=== PATIENT | male | born 1975 | race African-American/Black ===

== ENCOUNTER 2017-03-07 10:00 | Emergency (ER) | payer SELFPAY ==
--- NOTE | 2017-03-07 10:45 | RAD ---
SINGLE VIEW OF THE CHEST: COMPARISON: 01/04/2006 HISTORY: Cough and body aches. FINDINGS: Single view of the chest shows a normal sized cardiomediastinal silhouette. There is no evidence of consolidation, mass, or pleural effusion. The bones are unremarkable. IMPRESSION: No evidence of acute cardiopulmonary disease. POS: [id number]
[2017-03-07 10:57] LABS: #Basophils 0.1 thou/uL (0.0-0.2); #Eosinphils 0.4 thou/uL (0.0-0.7); #Lymphocytes 2.3 thou/uL (1.20-3.40); #Monocytes 0.4 thou/uL (0.11-0.59); %Basophils 1.4 % (0.0-1.0); %Eosinophils 6.3 % (0.0-10.0); %Lymphocytes 37.8 % (21.0-51.0); %Monocytes 6.2 % (0.0-10.0); Hematocrit 38.6 % (42.0-52.0); Mean Platelet Volume 6.5 fL (7.4-10.4); White Blood Cell (WBC) Count 6.1 thou/uL (4.8-10.8)
[2017-03-07 11:23] LABS: ALT (SGPT) 64 U/L (8-55); AST (SGOT) 79 U/L (5-34); Alkaline Phosphatase 97 U/L (40-150); Anion Gap 11 mmol/L (10-20); BUN (Urea Nitrogen) 9 mg/dL (8.9-20.6); Bilirubin, Total 0.4 mg/dL (0.2-1.2); Calc. Creatinine Clearance 0 mL/min (70-130); Calcium 8.6 mg/dL (7.8-10.44); Carbon Dioxide 27 mmol/L (22-29); Chloride 106 mmol/L (98-107); Estimated GFR-MDRD 79; Globulin 3.2 g/dL (2.4-3.5)
== END 2017-03-07 11:30 | disposition home or self-care (01) ==
LOC: ERS 10:00
DX: J06.9 Acute upper respiratory infection, unspecified (principal); F17.210 Nicotine dependence, cigarettes, uncomplicated
CPT/HCPCS: 36415; 71010; 80053; 85025

== ENCOUNTER 2017-03-19 12:30 | Emergency (ER) | payer SELFPAY ==
[2017-03-19] MEDS ORDERED: Adacel (T-DAP) 0.5 ML VIAL ONE (14:25)
== END 2017-03-19 16:56 | disposition home or self-care (01) ==
LOC: ERS 12:30
DX: S61.412A Laceration without foreign body of left hand, initial encounter (principal); Z23 Encounter for immunization; W26.0XXA Contact with knife, initial encounter
CPT/HCPCS: 12001; 90471; 90715

== ENCOUNTER 2018-02-08 12:17 | Emergency (ER) | payer SELFPAY | END 2018-02-08 13:20 | disposition home or self-care (01) | LOC: ERS 12:17 | DX: B35.0 Tinea barbae and tinea capitis (principal); B35.4 Tinea corporis; F17.210 Nicotine dependence, cigarettes, uncomplicated | CPT/HCPCS: 99282 ==

== ENCOUNTER 2018-09-09 17:03 | Emergency (ER) | payer SELFPAY | END 2018-09-09 17:45 | disposition home or self-care (01) | LOC: ERS 17:03 | DX: L25.9 Unspecified contact dermatitis, unspecified cause (principal); F17.210 Nicotine dependence, cigarettes, uncomplicated | CPT/HCPCS: 99282 ==